=== PATIENT | female | born 1985 | race Hispanic/Latino ===

== ENCOUNTER 2019-08-26 18:13 | Emergency (ER) | payer BC ==
[2019-08-26] MEDS ORDERED: KETOROLAC TROMETHAMINE 15MG/ML ONE ×2 (19:28→20:48)
[2019-08-26 19:59] LABS: BASOPHILS % (AUTO) 0.4 % (0.0-5.0); EOSINOPHILS % (AUTO) 1.1 % (0.0-8.0); HEMATOCRIT 39.9 % (36-48); LYMPHOCYTES % (AUTO) 32.8 % (21.0-51.0); MEAN CORPUSCULAR HEMOGLOBIN 28.4 pg (27.0-33.0); MEAN CORPUSCULAR HGB CONC 33.7 g/dL (32.0-36.0); MEAN CORPUSCULAR VOLUME 84.4 fL (79-99); MONOCYTES % (AUTO) 5.8 % (3.0-13.0); NEUTROPHILS % (AUTO) 59.9 % (40.0-77.0); PLATELET COUNT (AUTO) 350 K/uL (130-400); RED BLOOD CELL COUNT(AUTO) 4.73 MIL/uL (4.00-5.50); RED CELL DISTRIBUTION WIDTH 13.9 % (11.0-15.5); WHITE BLOOD COUNT (AUTO) 7.3 K/uL (4.8-10.8)
[2019-08-26 20:14] LABS: CREATININE 0.8 mg/dL (0.5-1.5); POTASSIUM 3.8 mmol/L (3.5-5.1)
[2019-08-26 20:26] LABS: ALBUMIN 3.6 g/dL (3.5-5.0); BILIRUBIN,TOTAL 0.4 mg/dL (0.2-1.0); TOTAL PROTEIN, SERUM 7.7 g/dL (6.0-8.3)
[2019-08-26 20:38] LABS: APPEARANCE,URINE Clear (CLEAR); BILIRUBIN,URINE Negative (NEGATIVE); COLOR,URINE Yellow (YELLOW); GLUCOSE, URINE (UA) Negative (NEGATIVE); KETONES,URINE Negative (NEGATIVE); LEUKOCYTE ESTERASE ,URINE Negative (NEGATIVE); NITRATE,URINE Negative (NEGATIVE); OCCULT BLOOD,URINE Moderate (NEGATIVE); PROTEIN,URINE Trace mg/dL (NEGATIVE)
[2019-08-26] MEDS ORDERED: HYDROCODONE/ACETAMINOPHEN 5/325 MG TAB ONE (20:49)
[2019-08-26 20:58] LABS: BACTERIA,URINE Few /HPF (None Seen); MUCUS,URINE Moderate LPF (None Seen)
== END 2019-08-26 23:00 | disposition home or self-care (01) ==
LOC: EDH 18:13
DX: N93.8 Other specified abnormal uterine and vaginal bleeding (principal); N83.202 Unspecified ovarian cyst, left side; Z88.1 Allergy status to other antibiotic agents
CPT/HCPCS: 36415; 76830; 80053; 81001; 84702; 85025; 86900; 86901; 96374; 96375; 99285; J1885 ×2

== ENCOUNTER 2022-11-03 14:02 | Emergency (ER) | payer BC, MEDICAID ==
[~2022-11-03] VITALS: Ht 152.4 cm; Wt 81.6 kg
[2022-11-03 15:37] VITALS: BP 168/113
[2022-11-03] MEDS ORDERED: ZINC50TA64 PO (17:19)
[2022-11-03] MEDS ORDERED: IBUP-2070 PO (17:19)
[2022-11-03] MEDS ORDERED: ONDA4TAB10 PO (17:19)
[2022-11-03] MEDS ORDERED: ASCO500T19 PO (17:19)
[2022-11-03] MEDS ORDERED: GUAIFENESIN-DM 200/20 MG 10 ML PO ONE (17:30)
[2022-11-03] MEDS ORDERED: IBUPROFEN 600 MG TABLET PO ONE (17:30)
== END 2022-11-03 17:23 | disposition home or self-care (01) ==
LOC: EDH 14:02
DX: U07.1 COVID-19 (principal); I10 Essential (primary) hypertension; Z88.1 Allergy status to other antibiotic agents; Z98.890 Other specified postprocedural states
CPT/HCPCS: 99284; 87635; 87804 ×2; 93005; C9803

== ENCOUNTER → 2024-03-17 | Outpatient (CLI) | payer MEDICAID ==
[~2024-03-17] MED LIST: ASCO500T19 PO; IBUP-2070 PO; IOHEXOL 350 MG/ML 100ML INFUS..BTL IV ONE; ONDA4TAB10 PO; ZINC50TA64 PO
== END | disposition home or self-care (01) ==
LOC: RAH 08:53
PROVIDERS: ATTEND Internal Medicine Gastroenterology
DX: K76.0 Fatty (change of) liver, not elsewhere classified (principal); N32.89 Other specified disorders of bladder; K50.811 Crohn's disease of both small and large intestine with rectal bleeding; Z90.49 Acquired absence of other specified parts of digestive tract
CPT/HCPCS: 74178; Q9967

== ENCOUNTER 2024-12-28 19:32 | Emergency (ER) | payer MEDICAID ==
[~2024-12-28] VITALS: Ht 149.9 cm; Wt 85.7 kg
[~2024-12-28 19:32] MED LIST changes: -IOHEXOL 350 MG/ML 100ML INFUS..BTL IV ONE; +ONDA-243 PO; -ONDA4TAB10 PO
--- NOTE | 2024-12-28 19:42 | ERN ---
ED Note History of Present Illness Stated Complaint: COUGH, CENGESTION, HIGH BLOOD PRESSURE Time Seen by MD: 19:32 Dictation: The patient is a 39-year-old female with a medical history that includes hypertension and Crohn's disease for which she is receiving immunosuppressive therapy presented to the emergency department with primary complaints of fever, cough, and nasal congestion that have persisted for the past seven days. The onset of her symptoms began with an itchy throat and fever, prompting a visit to the emergency room where she received a steroid injection and was subsequently discharged with a prescription for azithromycin. During that visit, tests for COVID-19, streptococcus, and influenza returned negative results. Despite this, the patient's condition has not improved and has progressively worsened. 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 Recently, one of her ducks exhibited signs of illness, including a runny nose, and subsequently . The patient is apprehensive about the possibility of davis influenza. Additionally, she reports experiencing evening fevers, body aches, weakness, and some chest pressure related to her cough. She denies experiencing nausea, vomiting, weight loss, weakness, numbness, or shortness of breath. Allergies: Coded Allergies: levofloxacin (Unverified Allergy, Unknown, 08/26/19) vancomycin (Unverified Allergy, Unknown, 08/26/19) Home Meds Active Scripts Ondansetron (Ondansetron Odt) 4 Mg Tab.rapdis, 4 MG PO TID PRN for NA USEA/VOMITING, #10 TAB Prov:[facility] 11/03/22 Zinc Amino Acid Chelate (Zinc) 50 Mg Tablet, 50 MG PO DAILY, #15 TAB Prov:[facility] 11/03/22 Ascorbic Acid/Ascorbate Sodium (Vitamin C 500 mg Tablet Chew) 500 Mg Tab.chew, 500 MG PO DAILY, #15 TAB.CHEW Prov:[facility] 11/03/22 Ondansetron (Ondansetron Odt) 4 Mg Tab.rapdis, 4 MG PO TID, #10 TAB Prov:[facility] 11/03/22 Ibuprofen (Ibuprofen) 600 Mg Tablet, 600 MG PO Q6H PRN for PAIN, #15 TAB Prov:[facility]ICHO PATEL [facility] 11/03/22 Past Medical History Past Medical History: Hypertension Surgical History: Other Surgical History Other: D/C X2 Review of System Dictation REVIEW OF SYSTEMS CONSTITUTIONAL: c/o fever, bodyaches, denies chills, or night sweats. No unintentional weight loss reported. NEUROLOGICAL: Denies headache, amaurosis fugax, motor weakness, sensory deficit, vertigo/spinning sensation, gait abnormalities, or tremors. ENT: c/o nasal congestion, No hearing loss, otalgia, otorrhea, rhinitis, rhinorrhea, hoarseness, or sore throat. CARDIOVASCULAR: Denies any exertional angina, dyspnea on exertion, orthopnea, paroxysmal nocturnal dyspnea, palpitations, life-threatening arrhythmias, claudication. PULMONARY: c/o dry cough, Denies any shortness of breath, cough, phlegm/sputum, hemoptysis, pleuritic chest pain. SLEEP: Denies morning headaches, daytime somnolence or napping. Denies difficulty falling asleep, staying asleep, waking from sleep. Denies knowledge of snoring. GASTROINTESTINAL: Denies any type of dysphagia to either liquids or solids. Denies nausea, vomiting, pyrosis, early satiety, abdominal pain, diarrhea, constipation, or changes in stool consistency or caliber. Denies coffee-ground emesis, hematemesis, hematochezia, or melanotic stools. GENITOURINARY: Denies frequency, urgency, nocturia, hematuria or incontinence (Storage/Irritative symptoms.) Low urinary stream, straining to void, urinary intermittency or hesitancy, splitting of the voiding stream, terminal dribbling. ENDOCRINOLOGIC: Denies polyuria, polydipsia, polyphagia or heat/cold intolerances. HEMATOLOGIC: Denies thrombophilia/previous clots, or coagulopathy/bleeding disorders. ONCOLOGIC: Denies personal history of malignancy. DERMATOLOGIC: Denies rashes or pruritus. PSYCHIATRIC: Denies any suicidal or homicidal ideation. Denies hallucinations. Initial Vital Sign VS Vital Signs Date Time Temp Pulse Resp B/P (MAP) Pulse Ox O2 Delivery O2 Flow Rate FiO2 12/28/24 19:47 98.2 107 18 206/137 100 Room Air 0 12/28/24 21:18 21 Physical Exam Dictation PHYSICAL EXAM GENERAL APPEARANCE: The patient is awake, alert, and oriented, in no acute cardiopulmonary distress. NEUROLOGICAL: Cranial nerves II-XII grossly intact. Motor is 5/5 in bilateral upper and lower extremities proximal to distal. No sensory deficits. HEENT: Face is symmetric. Pupils are equal and reactive. Extraocular movements are intact. NECK: Supple. No JVD. No thyromegaly. No submental, submandibular, pre- /postauricular, occipital or supraclavicular lymphadenopathy. CHEST: Normal chest expansion. No Telemetry. LUNGS: Absence of any rales, rhonchi or any wheezing. CARDIOVASCULAR: Regular. S1 and S2 normal. No appreciable rubs, murmurs or gallops. ABDOMEN: Soft, nontender, and nondistended. There is no rebound, voluntary guarding, or rigidity. : Deferred. No Chang. EXTREMITIES: Non-edematous and not cyanotic. No clubbing. Good capillary refill. SKIN: No skin breakdown. Results (Laboratory/Radiology) Laboratory/Radiology Laboratory Tests Test 12/28/24 19:55 12/28/24 20:04 12/28/24 20:36 Influenza Type A Antigen Negative For Type A Influenza Type B Antigen Negative For Type B SARS-CoV-2 Antigen (Rapid) PRESUMPTIVE NEGATIVE Group A Streptococcus Rapid negative (NEGATIVE) Urine Color LIGHT-YELLOW (YELLOW) Urine Appearance CLEAR (CLEAR) Urine pH 6.5 (5.0-8.0) Urine Specific [place] 1.022 (1.001-1.031) Urine Protein 100 mg/dL (NEGATIVE) H Urine Glucose (UA) NEGATIVE mg/dL (NEGATIVE) Urine Ketones NEGATIVE mg/dL (NEGATIVE) Urine Occult Blood SMALL (NEGATIVE) H Urine Nitrate NEGATIVE (NEGATIVE) Urine Bilirubin NEGATIVE mg/dL (NEGATIVE) Urine Urobilinogen 0.2 mg/dL (0.2-1.0) Urine Leukocyte Esterase NEGATIVE Enrique/uL Urine RBC 6-10 /HPF (0-1) H Urine WBC 0-1 /HPF (0-1) Urine Squamous Epithelial Cells RARE /HPF (0-2) Urine Bacteria RARE /HPF (None Seen) Urine HCG, Qualitative NEGATIVE (NEGATIVE) White Blood Count 11.0 K/uL (4.8-10.8) H Red Blood Count 5.17 MIL/uL (4.00-5.50) Hemoglobin 14.4 g/dL (12.0-16.0) Hematocrit 44.9 % (36-48) Mean Corpuscular Volume 86.8 fL (79-99) Mean Corpuscular Hemoglobin 27.9 pg (27.0-33.0) Mean Corpuscular Hemoglobin Concent 32.1 g/dL (32.0-36.0) Red Cell Distribution Width 13.9 % (11.0-15.5) Platelet Count 384 K/uL (130-400) Mean Platelet Volume 8.6 fL (7.5-10.5) Immature Granulocyte % (Auto) 1.7 % (0-1) H Neutrophils (%) (Auto) 52.9 % (40.0-77.0) Lymphocytes (%) (Auto) 39.5 % (21.0-51.0) Monocytes (%) (Auto) 4.0 % (3.0-13.0) Eosinophils (%) (Auto) 1.5 % (0.0-8.0) Basophils (%) (Auto) 0.4 % (0.0-5.0) Neutrophils # (Auto) 5.8 K/uL (1.8-7.7) Lymphocytes # (Auto) 4.4 K/uL (1.0-4.8) Monocytes # (Auto) 0.4 K/uL (0.1-1.0) Eosinophils # (Auto) 0.17 K/uL (0.00-0.70) Basophils # (Auto) 0.04 K/uL (0.00-0.20) Absolute Immature Granulocyte (auto 0.19 K/uL (0-1) Nucleated Red Blood Cells 0.0 % (0.0-0.19) Erythrocyte Sedimentation Rate 18 MM/HR (0-20) Sodium Level 141 mmol/L (136-145) Potassium Level 3.8 mmol/L (3.5-5.1) Chloride Level 104 mmol/L (101-111) Carbon Dioxide Level 27 mmol/L (21-32) Blood Urea Nitrogen 15 mg/dL (7-18) Creatinine 1.0 mg/dL (0.5-1.0) Glomerular Filtration Rate Calc 73 mL/min (>90) Random Glucose 132 mg/dL (70-105) H Lactic Acid Level 2.0 mmol/L (0.8-2.5) Total Calcium 8.5 mg/dL (8.5-10.1) Total Bilirubin 0.3 mg/dL (0.2-1.0) Direct Bilirubin 0.1 mg/dL (0.0-0.3) Aspartate Amino Transf (AST/SGOT) 3 U/L (10-37) L Alanine Aminotransferase (ALT/SGPT) 18 U/L (12-78) Alkaline Phosphatase 78 U/L (50-136) Total Creatine Kinase 42 U/L (21-232) Troponin I High Sensitivity 5.2 ng/L (4-50) Total Protein 7.5 g/dL (6.0-8.3) Albumin 3.3 g/dL (3.5-5.0) L Procalcitonin < 0.05 ng/mL (0.05-0.5) L X-RAY Comment: [address] [address] IMAGING REPORT Signed PATIENT: GLORIA RICHMOND MR#: [id number] : 1985 SEX: F AGE: 39 LOCATION: [facility] ORDER 58 STATUS: REG REPORT#: [id number] SERVICE 57 REASON: Fever, Cough ORDERING PHYSICIAN: PRAVEEN PERKINS MD PROCEDURE: CXR1VW - CHEST 1VW INDICATION: Fever, Cough TECHNIQUE: CHEST 1VW COMPARISON: 01/19/2010 FINDINGS AND IMPRESSION: No acute consolidation or pleural effusion. Cardiac silhouette is within normal limits. Mild degenerative changes of the spine. The visualized upper abdomen appears unremarkable. DICTATED BY: ROSSY RICHTER MD DATE: 12/28/242145 ELECTRONICALLY SIGNED BY: ROSSY RICHTER MD DATE: 12/28/242148 ED Course ED Course Orders Procedure Category Date Status Time Influenza Type A & B, LAB 12/28/24 Complete Rapid 19:57 Covid19 (Sars Antigen LAB 12/28/24 Complete Rapid) 19:57 Rapid (Group A Strep) LAB 12/28/24 Complete 19:57 Chest 1vw RAD 12/28/24 Resulted 19:58 Cbc With Differential LAB 12/28/24 Complete 19:59 Basic Metabolic Panel LAB 12/28/24 Complete 19:59 Urinalysis Profile LAB 12/28/24 Complete 19:59 ,Urine Test LAB 12/28/24 Complete 19:59 Procalcitonin LAB 12/28/24 Complete 20:04 Lactic Acid LAB 12/28/24 Complete 20:04 Erythrocyte LAB 12/28/24 Complete Sedimentation Rate 20:04 Blood Cult NIRAV 12/28/24 In Process 20:07 0.9%Nacl 1000ml (Ns PHA 12/28/24 Complete 1000ml) 20:30 Ketorolac PHA 12/28/24 Complete Tromethamine 15mg/Ml 20:30 Acetaminophen 500mg PHA 12/28/24 Complete Tab (Tylenol 500mg T 20:30 Cardiac Panel LAB 12/28/24 Complete 19:59 Hepatic Function Panel LAB 12/28/24 Complete 19:59 Vital Signs Per CPOE 12/28/24 Transmitted Routine 20:55 Dexamethasone 4 Mg PHA 12/28/24 Complete Tab (Decadron 4 Mg Ta 22:00 Current Medications Medications (Trade) Dose Ordered Sig/Omayra Route PRN Reason Start Time Stop Time Status Last Admin Dose Admin Acetaminophen (TYLenol 500MG TAB) 1,000 mg ONCE ONCE PO 12/28/24 20:30 12/28/24 20:32 DC 12/28/24 20:51 Dexamethasone (DeCADron 4 mg TAB) 4 mg ONCE ONCE PO 12/28/24 22:00 12/28/24 21:58 DC 12/28/24 21:53 Ketorolac Tromethamine (toRADol) 15 mg ONCE ONCE IV 12/28/24 20:30 12/28/24 20:31 DC 12/28/24 20:51 Sodium Chloride 1,000 ml @ 0 mls/hr ONCE ONCE IV 12/28/24 20:30 12/28/24 20:31 DC 12/28/24 20:51 Vital Signs Date Time Temp Pulse Resp B/P (MAP) Pulse Ox O2 Delivery O2 Flow Rate FiO2 12/28/24 21:18 98.2 92 18 179/99 100 Room Air* 0 21 12/28/24 19:47 98.2 107 18 206/137 100 Room Air 0 08:17 PM The patient was assessed in Emergency Department triage room 1. Her current blood pressure is recorded at 206/137, with a pulse rate of 101 and an SpO2 level of 99% while on room air. Considering the patient's history of an evening fever and congestion, along with her vital signs, we will proceed with laboratory tests and a septic workup to exclude any potential infectious processes. We have contacted the laboratory, and if the patient tests positive for influenza A, we will send a respiratory sample for further testing for bird flu. Once the laboratory results and radiological assessments are available, we will determine whether the patient requires emergency intervention or inpatient care. Continuous monitoring of the patient will be maintained. 09:25 The respiratory swabs tested negative for COVID-19, influenza, and streptococcal infection. Laboratory results did not indicate any significant abnormalities. Upon re-evaluation, the patient's blood pressure was recorded at 179/99. The patient is presently undergoing treatment. At this time, we do not think this patient requires any emergency treatment or inpatient hospitalization. She will be educated about how to do self-care for upper respiratory tract infection using as needed cough lozenges, and over the counter medications. Once the patient receives the treatment, she will be medically stable for discharge. Medical Decision Making [facility] Differential diagnosis: Upper respiratory tract infection, Acute bronchitis Rationale: Tests considered and ordered secondary to shared decision making include: Previous outside records reviewed: Old ER visits. Risk of complication and/or morbidity or mortality of patient management: None Medications-Per medication reconciliation Need for hospitalization: Patient does not meet criteria for hospitalization. Need for emergency major/minor surgery: No There are no social concerns with this patient. Prescription drug management Prescriptions will include symptomatic care Patient's prior external medical records from other ER visits were reviewed by me as indicated. Prior testing and results from previous visits were reviewed. Prior tests were taken into account with medical decision making and resource utilization, independent historian/historians were used to obtain complete medical history. I independently interpreted the test that were performed, results were reviewed by me and considered findings on radiology if ordered. DX & DISP Disposition: Discharge Departure Impression: Primary Impression: Upper respiratory tract infection Additional Impression: Acute bronchitis Condition: Stable Additional Instructions: Hydration: Drink plenty of fluids, like water, juice, or warm broth. Avoid caffeine and alcohol. Throat relief: Gargle with salt water, or try throat lozenges or hard candy. Cough relief: Try honey or cough drops, or [id number] cough syrups. Pain relief: Take acetaminophen (Tylenol) or ibuprofen (Advil, Motrin). Congestion relief: Use a cool mist humidifier or vaporizer, or try decongestants like pseudoephedrine (Sudafed) or phenylephrine (Candelario-Synephrine nasal). Visit the nearest emergency department or call 911 should the symptoms returns or gets worse. Referrals: MARÍA SUERO MD (PCP) I have reviewed the case, and I agree with, Diagnosis and Plan I have examined patient, & reviewed all documents, & agreed W/ the Diagnosis, and Plan I performed a substantive portion of the visit. I have reviewed and personally made and approve the management plan that is documented in the notes by myself with MAGNO/resident. I acknowledged full responsibility for the patient's management plan. PRAVEEN PERKINS MD Dec 28, 2024 19:42 ISAIAH CHOE DO Dec 29, 2024 00:56
[2024-12-28 20:18] LABS: RAPID GROUP A STREP negative (NEGATIVE)
[2024-12-28 20:26] LABS: COVID19 (SARS ANTIGEN RAPID) PRESUMPTIVE NEGATIVE (NEGATIVE)
[2024-12-28 20:27] LABS: INFLUENZA TYPE A Negative For Type A (NEGATIVE); INFLUENZA TYPE B Negative For Type B (NEGATIVE)
[2024-12-28 20:32] LABS: APPEARANCE,URINE CLEAR (CLEAR); BILIRUBIN,URINE NEGATIVE (NEGATIVE); COLOR,URINE LIGHT-YELLOW (YELLOW); GLUCOSE, URINE (UA) NEGATIVE (NEGATIVE); KETONES,URINE NEGATIVE (NEGATIVE); LEUKOCYTE ESTERASE ,URINE NEGATIVE Leu/uL (NEGATIVE); NITRATE,URINE NEGATIVE (NEGATIVE); OCCULT BLOOD,URINE SMALL (NEGATIVE); PH,URINE 6.5 (5.0-8.0); PROTEIN,URINE 100 mg/dL (NEGATIVE); UROBILINOGEN,URINE 0.2 mg/dL (0.2-1.0)
[2024-12-28 20:35] LABS: HCG,QUALITATIVE URINE NEGATIVE (NEGATIVE)
[2024-12-28 20:36] LABS: ADD UA MICROSCOPIC YES
[2024-12-28 20:45] LABS: BACTERIA,URINE RARE /HPF (None Seen); MUCUS,URINE RARE LPF (None Seen); SQUAMOUS EPITHELIAL CELL,UR RARE /HPF (0-2); WBC,URINE 0-1 /HPF (0-1)
[2024-12-28 20:49] LABS: BASOPHILS # (AUTO) 0.04 K/uL (0.00-0.20); BASOPHILS % (AUTO) 0.4 % (0.0-5.0); EOSINOPHILS # (AUTO) 0.17 K/uL (0.00-0.70); EOSINOPHILS % (AUTO) 1.5 % (0.0-8.0); HEMATOCRIT 44.9 % (36-48); IMMATURE GRANULOCYTE ABSOLUTE 0.19 K/uL (0-1); LYMPHOCYTES # (AUTO) 4.4 K/uL (1.0-4.8); LYMPHOCYTES % (AUTO) 39.5 % (21.0-51.0); MEAN CORPUSCULAR HEMOGLOBIN 27.9 pg (27.0-33.0); MEAN CORPUSCULAR HGB CONC 32.1 g/dL (32.0-36.0); MEAN CORPUSCULAR VOLUME 86.8 fL (79-99); MONOCYTES # (AUTO) 0.4 K/uL (0.1-1.0); NEUTROPHILS # (AUTO) 5.8 K/uL (1.8-7.7); NEUTROPHILS % (AUTO) 52.9 % (40.0-77.0); PLATELET COUNT (AUTO) 384 K/uL (130-400); RED BLOOD CELL COUNT(AUTO) 5.17 MIL/uL (4.00-5.50); RED CELL DISTRIBUTION WIDTH 13.9 % (11.0-15.5)
[2024-12-28] MEDS: ketOROlac 15MG/ML VIAL (15MG/ML) IV ONE (20:51)
[2024-12-28] MEDS: acetaMINOPHEN 500 MG TABLET PO ONE (20:51)
[2024-12-28] MEDS: 0.9%NACL 1000ML 1,000 ML IV ONE (20:51)
[2024-12-28 21:02] LABS: POTASSIUM 3.8 mmol/L (3.5-5.1)
[2024-12-28 21:08] LABS: ALBUMIN 3.3 g/dL (3.5-5.0); BILIRUBIN,DIRECT 0.1 mg/dL (0.0-0.3); BILIRUBIN,TOTAL 0.3 mg/dL (0.2-1.0); TOTAL PROTEIN, SERUM 7.5 g/dL (6.0-8.3)
[2024-12-28 21:18] VITALS: BP 179/99; PULSE 92; RESP 18; TEMP 98.3; O2SAT 100
--- NOTE | 2024-12-28 21:49 | HMCIMG ---
INDICATION: Fever, Cough TECHNIQUE: CHEST 1VW COMPARISON: 01/19/2010 FINDINGS AND IMPRESSION: No acute consolidation or pleural effusion. Cardiac silhouette is within normal limits. Mild degenerative changes of the spine. The visualized upper abdomen appears unremarkable.
[2024-12-28] MEDS: dexaMETHasone 4 MG TAB PO ONE (21:53)
== END 2024-12-28 21:58 | disposition home or self-care (01) ==
LOC: EDH 19:32
DX: J06.9 Acute upper respiratory infection, unspecified (principal); J20.9 Acute bronchitis, unspecified; I10 Essential (primary) hypertension; Z88.1 Allergy status to other antibiotic agents; Z20.822 Contact with and (suspected) exposure to COVID-19
CPT/HCPCS: 99284; 96374; 71045; 87426; 82550; 80076; 84484; 80048; 85025; 85651; 87040 ×2; 87880; 87804 ×2; 83605; 81001; 81025; 36415; 84145; J1885; J7030; J8540